=== PATIENT | male | born 1935 | race Caucasian/White ===

== ENCOUNTER 2022-11-04 15:47 | Outpatient (CLI) | payer MEDICARE ==
[2022-11-04 16:05] LABS: EOSINOPHILS # (AUTO) 0.1 10^3/uL (0.0-0.7); EOSINOPHILS % (AUTO) 2.3 %; HCT - HEMATOCRIT 44.5 % (42.0-52.0); HGB - HEMOGLOBIN 14.4 g/dL (14.0-18.0); LYMPHOCYTES # (AUTO) 0.7 10^3/uL (1.5-3.5); LYMPHOCYTES % (AUTO) 17.8 %; MEAN CORPUSCULAR HEMOGLOBIN 31.2 pg (27.0-31.0); MEAN CORPUSCULAR HGB CONC 32.4 g/dL (32.0-36.0); MEAN CORPUSCULAR VOLUME 96.3 fL (80.0-94.0); MEAN PLATELET VOLUME 11.3 fL (7.4-11.4); NEUTROPHILS % (AUTO) 52.4 %; PLT - PLATELET COUNT 130 10^3/uL (130-450); RED BLOOD COUNT 4.62 10^6/uL (4.70-6.10); WHITE BLOOD COUNT 3.9 x10^3/uL (4.8-10.8)
[2022-11-04 16:18] LABS: ALBUMIN 4.2 g/dL (3.2-5.5); ALBUMIN/GLOBULIN RATIO 1.4 (1.0-2.2); ALKALINE PHOSPHATASE 53 IU/L (42-121); ALT ALANINE AMINOTRANSFERASE 18 IU/L (10-60); AST ASPARTATE AMINOTRANSFERASE 25 IU/L (10-42); BILIRUBIN,TOTAL 0.7 mg/dL (0.2-1.0); BUN - BLOOD UREA NITROGEN 21 mg/dL (6-20); CALCIUM 9.4 mg/dL (8.5-10.3); CARBON DIOXIDE - CO2 26 mmol/L (21-32); CHLORIDE 101 mmol/L (101-111); CHOL/HDL RATIO 2.8 (<5.0); CHOLESTEROL 147 mg/dL; CREATININE 1.1 mg/dL (0.6-1.2); GFR - MDRD 64 (>89); GLUCOSE 85 mg/dL (70-100); HDL CHOLESTEROL 53 mg/dL; LDL CHOLESTEROL,CALCULATED 84 mg/dL; LDL/HDL RATIO 1.6 (<3.6); SODIUM 138 mmol/L (135-145); TOTAL PROTEIN 7.3 g/dL (6.7-8.2); TRIGLYCERIDES 48 mg/dL; VLDL CHOLESTEROL 10 mg/dL
[2022-11-04 16:24] LABS: PSA TOTAL 7.491 ng/mL (0.000-2.000)
[2022-11-04 17:00] LABS: PSA FREE 1.662 ng/mL (0.16-2.81)
== END 2022-11-04 15:48 | disposition home or self-care (01) ==
LOC: LAB.R 15:47
PROVIDERS: ATTEND Internal Medicine
DX: Z00.00 Encounter for general adult medical examination without abnormal findings (principal); R05.1 Acute cough; D64.9 Anemia, unspecified; R97.20 Elevated prostate specific antigen [PSA]; H40.9 Unspecified glaucoma; R11.2 Nausea with vomiting, unspecified; N20.0 Calculus of kidney; L40.9 Psoriasis, unspecified; Z86.010 Personal history of colon polyps
CPT/HCPCS: 80053; 80061; 82306; 83721; 84153; 84154; 84443; 85025

== ENCOUNTER 2023-07-24 17:21 | Emergency (ER) | payer MEDICARE ==
[2023-07-24 17:54] LABS: BILIRUBIN,URINE NEGATIVE (NEGATIVE); GLUCOSE, URINE (UA) NEGATIVE (NEGATIVE); KETONES,URINE (UA) NEGATIVE (NEGATIVE); LEUKOCYTE ESTERASE, URINE NEGATIVE (NEGATIVE); NITRITE,URINE NEGATIVE (NEGATIVE); OCCULT BLOOD,URINE NEGATIVE (NEGATIVE); PROTEIN,URINE NEGATIVE (NEGATIVE); UROBILINOGEN,URINE 0.2 (NORMAL) E.U./dL (NORMAL)
[2023-07-24 18:01] LABS: CLARITY,URINE CLEAR (CLEAR)
[2023-07-24 18:01] LABS: BASOPHILS # (AUTO) 0.1 10^3/uL (0.0-0.1); BASOPHILS % (AUTO) 0.7 %; EOSINOPHILS # (AUTO) 0.1 10^3/uL (0.0-0.7); HGB - HEMOGLOBIN 14.4 g/dL (14.0-18.0); LYMPHOCYTES # (AUTO) 1.1 10^3/uL (1.5-3.5); LYMPHOCYTES % (AUTO) 11.7 %; MEAN CORPUSCULAR HEMOGLOBIN 31.4 pg (27.0-31.0); MEAN CORPUSCULAR HGB CONC 33.5 g/dL (32.0-36.0); MEAN CORPUSCULAR VOLUME 93.9 fL (80.0-94.0); MEAN PLATELET VOLUME 10.2 fL (7.4-11.4); MONOCYTES # (AUTO) 0.8 10^3/uL (0.0-1.0); MONOCYTES % (AUTO) 9.2 %; NEUTROPHILS # (AUTO) 6.9 10^3/uL (1.5-6.6); PLT - PLATELET COUNT 186 10^3/uL (130-450); RED BLOOD COUNT 4.58 10^6/uL (4.70-6.10); RED CELL DISTRIBUTION WIDTH 12.7 % (12.0-15.0)
[2023-07-24 18:15] LABS: ALBUMIN 4.4 g/dL (3.2-5.5); ALBUMIN/GLOBULIN RATIO 1.7 (1.0-2.2); BILIRUBIN,TOTAL 0.8 mg/dL (0.2-1.0); CALCIUM 10.3 mg/dL (8.5-10.3); CREATININE 0.9 mg/dL (0.6-1.3); POTASSIUM 4.1 mmol/L (3.5-4.5)
[2023-07-24] MEDS ORDERED: ONDANSETRON 4 MG/2 ML VIAL IVP STA (18:31)
[2023-07-24] MEDS ORDERED: SODIUM CHLORIDE 0.9% 1,000 ML IV STA (18:31)
[2023-07-24] MEDS ORDERED: PROMETHAZINE INJ 25 MG in SODIUM CHLORIDE 0.9% 50 ML IV STA (20:03)
--- NOTE | 2023-07-24 20:04 | CT Report ---
PROCEDURE: ABDOMEN/PELVIS W INDICATIONS: diffuse abd pain CONTRAST: 100mL opti 320 TECHNIQUE: After the administration of contrast, 5 mm thick sections acquired from the diaphragms to the symphys is. 5 mm thick coronal and sagittal reformats were acquired. For radiation dose reduction, the foll owing was used: automated exposure control, adjustment of mA and/or kV according to patient size. COMPARISON: None FINDINGS: Image quality: Excellent. Lung bases and heart: Unremarkable. Liver: No solid mass. Gallbladder and biliary tree: Spleen: No splenomegaly. Pancreas: No pancreatic ductal dilation. At the pancreatic head there is a 2.1 cm cyst. Adrenals: No adrenal nodule. Kidneys and ureters: No hydronephrosis. No renal cystic lesion which requires follow up. No solid mas s. The right kidney has a 3 cm simple cyst. The left kidney has multiple parapelvic cysts. Bowel and peritoneum: No bowel distension. No pathologic free fluid. Small hiatal hernia. Lymph nodes: No central or retroperitoneal adenopathy. Vessels: No infrarenal aortic aneurysm. PELVIS Reproductive organs: Large right hydrocele. Bladder: No abnormal wall thickening, accounting for underdistension. Pelvic lymph nodes: No pelvic adenopathy by size criteria. Bones: Multilevel degenerative changes. 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 Other: No significant ventral or inguinal hernia. IMPRESSION: 1. No acute abnormality of the abdomen or pelvis. 2. 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 Differential diagnosis includes a serous cystic neoplasm. Recommend p ancreatic MRI. Reviewed by: Ronald Mcnair on 07/24/2023 8:03 PM PDT Approved by: Ronald Mcnair on 07/24/2023 8:03 PM PDT Station ID: [id number]
--- NOTE | 2023-07-24 20:06 | ED Physician Documentation ---
History of Present Illness - Stated complaint Stated Complaint: ABD PX, VOMITING - Chief complaint Chief Complaint: Abd Pain - History obtained from History obtained from: Patient, Family - History of Present Illness Timing: Today Pain level max: 3 Pain level now: 3 - Additonal information Additional information: 87-year-old male presents to the emergency department with nausea and vomiting that started around noon today. No diarrhea. No constipation. No fevers. No chills. States has mild epigastric pain after vomiting, approximately 3 out of 10. Nothing makes it better or worse. Does not believe he ate any spoiled food. No recent travel. No recent antibiotics. Review of Systems Constitutional: denies: Fever, Chills Respiratory: denies: Cough GI: reports: Nausea, Vomiting. denies: Diarrhea, Hematemesis, Bloody / black stool Skin: denies: Rash Musculoskeletal: denies: Neck pain, Back pain Neurologic: denies: Headache PD PAST MEDICAL HISTORY - Past Medical History Past Medical History: Yes HEENT: Glaucoma - Present Medications Home Medications: Ambulatory Orders Medication Instructions Recorded Confirmed Dorzolamide HCl/Timolol Maleat 10 ml OP BID 07/24/23 07/24/23 [Cosopt Eye Drops] Latanoprost 0.005% Ophth Drops 1 drops OPTH QPM 07/24/23 07/24/23 [Xalatan Ophth Drops] Ondansetron Odt [Zofran] 4 mg TL Q6H PRN #10 tablet 07/24/23 - Allergies Allergies/Adverse Reactions: Allergies Allergy/AdvReac Type Severity Reaction Status Date / Time sulfamethoxazole AdvReac Rash Verified 07/24/23 17:33 [From Bactrim] trimethoprim [From Bactrim] AdvReac Rash Verified 07/24/23 17:33 - Living Situation Living Situation: reports: With family Living Arrangement: reports: At home - Social History Does the pt have substance abuse?: No - Family History Family history: reports: Non contributory PD ED PE NORMAL - Vitals Vital signs reviewed: Yes - General General: Alert and oriented X 3, No acute distress - HEENT HEENT: PERRL, Moist mucous membranes - Neck Neck: Supple, no meningeal sign - Cardiac Cardiac: RRR, Strong equal pulses - Respiratory Respiratory: No respiratory distress, Clear bilaterally - Abdomen Abdomen: Normal bowel sounds, Soft, Non distended, Other (Mild tenderness to palpation epigastric without peritoneal signs.) - Back Back: No CVA TTP, No spinal TTP - Derm Derm: Warm and dry - Extremities Extremities: No edema - Neuro Neuro: Alert and oriented X 3 - Psych Psych: Normal mood, Normal affect Results - Vitals Vitals: Vital Signs - 24 hr 07/24/23 07/24/23 07/24/23 17:33 19:37 21:00 Temperature 97.5 C H 37.2 C Heart Rate 59 L 61 59 L Respiratory 20 16 13 Rate Blood Pressure 201/61 H 182/65 H 153/74 H O2 Saturation 99 100 99 Oxygen O2 Source Room air - EKG (time done) 1859 EKG releavant findings:: EKG personally interpreted by author of this note. Relevant findings are: Rate: Rate (enter#) (56) Rhythm: NSR [place]: Normal Intervals: Normal [place] QRS: Normal Ischemia: Normal ST segments - Labs Labs: Laboratory Tests 07/24/23 07/24/23 07/24/23 17:46 17:51 17:51 WBC 9.0 RBC 4.58 L Hgb 14.4 Hct 43.0 MCV 93.9 MCH 31.4 H MCHC 33.5 RDW 12.7 Plt Count 186 MPV 10.2 Neut # (Auto) 6.9 H Lymph # (Auto) 1.1 L [place] # (Auto) 0.8 Eos # (Auto) 0.1 Baso # (Auto) 0.1 Absolute Nucleated RBC 0.00 Nucleated RBC % 0.0 Sodium 137 Potassium 4.1 Chloride 105 Carbon Dioxide 25 Anion Gap 7.0 BUN 21 H Creatinine 0.9 Estimated GFR (MDRD) 80 L Glucose 129 H Calcium 10.3 Total Bilirubin 0.8 AST 19 ALT 12 Alkaline Phosphatase 64 Troponin I High Sens Total Protein 7.0 Albumin 4.4 Globulin 2.6 Albumin/Globulin Ratio 1.7 Lipase 33 Urine Color YELLOW Urine Clarity CLEAR Urine pH 8.0 H Ur Specific [place] 1.015 Urine Protein NEGATIVE Urine Glucose (UA) NEGATIVE Urine Ketones NEGATIVE Urine Occult Blood NEGATIVE Urine Nitrite NEGATIVE Urine Bilirubin NEGATIVE Urine Urobilinogen 0.2 (NORMAL) Ur Leukocyte Esterase NEGATIVE Ur Microscopic Review NOT INDICATED Urine Culture Comments NOT INDICATED 07/24/23 19:50 WBC RBC Hgb Hct MCV MCH MCHC RDW Plt Count MPV Neut # (Auto) Lymph # (Auto) [place] # (Auto) Eos # (Auto) Baso # (Auto) Absolute Nucleated RBC Nucleated RBC % Sodium Potassium Chloride Carbon Dioxide Anion Gap BUN Creatinine Estimated GFR (MDRD) Glucose Calcium Total Bilirubin AST ALT Alkaline Phosphatase Troponin I High Sens 7.4 Total Protein Albumin Globulin Albumin/Globulin Ratio Lipase Urine Color Urine Clarity Urine pH Ur Specific [place] Urine Protein Urine Glucose (UA) Urine Ketones Urine Occult Blood Urine Nitrite Urine Bilirubin Urine Urobilinogen Ur Leukocyte Esterase Ur Microscopic Review Urine Culture Comments - Rads (name of study) CT abdomen pelvis Relevant Findings:: Final report received, See rad report PD Medical Decision Making - ED course Complexity details: reviewed results, re-evaluated patient, considered differential, d/w patient, d/w family ED course: Patient with nausea, vomiting and epigastric abdominal pain. No acute findings on EKG. No acute findings on laboratory testing. He was given Zofran and Phenergan. Also given IV fluids. Nausea and vomiting resolved. We did discuss observation in the hospital, but patient declines this. He states he wants to go home and sleep. Ambulating without difficulty. He does have a 2.1 cm cyst in his pancreas, this will be followed up with his PCP with a pancreatic MRI. Has a known large hydrocele as well. Abdomen is soft currently nontender, nondistended on serial exam. Drinking Sprite without difficulty. Patient and family counseled regarding signs and symptoms for which I believe and urgent re- evaluation would be necessary. Patient with good understanding of and agreement to plan and is comfortable going home at this time This document was made in part using voice recognition software. While efforts are made to proofread this document, sound alike and grammatical errors may occur. Departure - Departure Disposition: 01 Home, Self Care Clinical Impression: Pancreatic cyst Vomiting Qualifiers: Vomiting type: unspecified Nausea presence: with nausea Qualified Code(s): R11.2 - Nausea with vomiting, unspecified Condition: Good Instructions: ED Nausea Vomiting Follow-Up: Aida Savage MD [Primary Care Provider] - Within 1 week Prescriptions: Ondansetron Odt [Zofran] 4 mg TL Q6H PRN #10 tablet PRN Reason: Nausea / Vomiting Comments: Your prescriptions were sent to [facility] in [place]. Please drink plenty of fluids. Please return if you worsen. Please follow-up with your doctor for further care as needed. You do need to have further evaluation of the cyst on your pancreas. Recommend pancreatic MRI to be ordered by your primary care provider. You have a large right hydrocele as well as a enlarged prostate. These can both be followed up with your doctor as well. Your CT scan report is below. PROCEDURE: ABDOMEN/PELVIS W INDICATIONS: diffuse abd pain CONTRAST: 100mL opti 320 TECHNIQUE: After the administration of contrast, 5 mm thick sections acquired from the diaphragms to the symphysis. 5 mm thick coronal and sagittal reformats were acquired. For radiation dose reduction, the following was used: automated exposure control, adjustment of mA and/or kV according to patient size. COMPARISON: None FINDINGS: Image quality: Excellent. Lung bases and heart: Unremarkable. Liver: No solid mass. Gallbladder and biliary tree: Spleen: No splenomegaly. Pancreas: No pancreatic ductal dilation. At the pancreatic head there is a 2.1 cm cyst. Adrenals: No adrenal nodule. Kidneys and ureters: No hydronephrosis. No renal cystic lesion which requires f ollow up. No solid mass. The right kidney has a 3 cm simple cyst. The left kidney has multiple parapelvic cysts. Bowel and peritoneum: No bowel distension. No pathologic free fluid. Small hiatal hernia. Lymph nodes: No central or retroperitoneal adenopathy. Vessels: No infrarenal aortic aneurysm. PELVIS Reproductive organs: Large right hydrocele. Bladder: No abnormal wall thickening, accounting for underdistension. Pelvic lymph nodes: No pelvic adenopathy by size criteria. Bones: Multilevel degenerative changes. 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 Other: No significant ventral or inguinal hernia. IMPRESSION: 1. No acute abnormality of the abdomen or pelvis. 2. 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 Differential diagnosis includes a serous cystic neoplasm. Recommend pancreatic MRI. Forms: PCP List
[2023-07-24] MEDS ORDERED: PROMETHAZINE 25 MG/1 ML VIAL ONE (20:19)
[2023-07-24] MEDS ORDERED: KETOROLAC 30 MG/ML VIAL IVP STA (20:40)
[2023-07-24] MEDS ORDERED: SUCRALFATE 1 GM/10 ML UDC PO STA (20:41)
[2023-07-24] MEDS ORDERED: FAMOTIDINE 20 MG TABLET PO STA (20:41)
[2023-07-24] MEDS ORDERED: MAG HYDROX/AL HYDROX/SIMETH 30 ML UDC PO STA (20:41)
[2023-07-24] MEDS ORDERED: ONDANSETRON ODT 4 MG Prepack 2 TL PRN (22:15)
[2023-07-24 22:38] VITALS: BP 113/57; O2SAT 98
[2023-07-25] MEDS ORDERED: IOVERSOL 320 100 ML VIAL IVP ONE (02:54)
== END 2023-07-24 22:31 | disposition home or self-care (01) ==
LOC: ED 17:21
DX: R11.2 Nausea with vomiting, unspecified (principal); R10.13 Epigastric pain; K86.2 Cyst of pancreas; N43.3 Hydrocele, unspecified; N40.0 Benign prostatic hyperplasia without lower urinary tract symptoms
CPT/HCPCS: 36415; 74177; 80053; 81003; 83690; 84484; 85025; 93005; 96374; 96375; 99284; A9270; J7040; 81001; 87086